=== PATIENT | male | born 1965 | race Two or more races ===

== ENCOUNTER 2024-07-04 08:32 | Emergency (ER) | payer MEDICARE, MEDICAID, SELFPAY ==
[2024-07-04 08:36] VITALS: BP 165/76; PULSE 83; RESP 16; TEMP 36.5; O2SAT 99; BMI 22.6
[2024-07-04 08:43] VITALS: PULSE 84; RESP 18; O2SAT 99
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
[2024-07-04] MEDS: ACETAMINOPHEN 500 MG TABLET 1000 MG PO (09:39)
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
[2024-07-04 12:32] VITALS: BP 190/98; PULSE 88; RESP 16; TEMP 36.7; O2SAT 98
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
[2024-07-04] MEDS: ONDANSETRON ODT 4 MG TABRAP PO (12:52)
== END 2024-07-04 13:50 | disposition home or self-care (01) ==
PROVIDERS: Emergency Provider Emergency Medicine; PCP Internal Medicine
DX: S32.019A Unspecified fracture of first lumbar vertebra, initial encounter for closed fracture (principal); S62.324A Displaced fracture of shaft of fourth metacarpal bone, right hand, initial encounter for closed fracture; S29.9XXA Unspecified injury of thorax, initial encounter; S39.91XA Unspecified injury of abdomen, initial encounter; V89.2XXA Person injured in unspecified motor-vehicle accident, traffic, initial encounter
CPT/HCPCS: 71046; 72100; 73130; 74176; 99284; Q0162; A9270